=== PATIENT | female | born 1955 | race Caucasian/White ===

== ENCOUNTER → 2024-07-04 12:16 | Outpatient (REF) | payer MEDICARE, OTHER, SELFPAY ==
[2024-07-04 15:41] LABS: ALT (SGPT) 18 U/L (0-35); AST (SGOT) 30 U/L (14-36); Albumin 4.5 g/dl (3.5-5.0); Alkaline Phosphatase 86 U/L (38-126); Blood Urea Nitrogen 22 mg/dl (7-17); Calcium 9.5 mg/dl (8.4-10.2); Carbon Dioxide 29 mmol/L (22-30); Chloride 100 mmol/L (98-107); Glucose 100 mg/dl (70-99); HDL Cholesterol 100 mg/dl; LDL Cholesterol, Calculated 134 mg/dl; Potassium 4.6 mmol/L (3.5-5.1); Sodium 141 mmol/L (135-145); Total Bilirubin 0.8 mg/dl (0.2-1.3); Total Cholesterol 253 mg/dl (50-199); Total Protein 7.4 g/dl (6.3-8.2); Triglyceride 96 mg/dl (10-149); Very Low Density Lipoprotein 19 mg/dl (0-30); eGFR > 60.00
[2024-07-04 15:57] LABS: Vitamin D, 25-OH*** 52.1 ng/mL (30-80)
== END ==
LOC: HWLAB 12:16
PROVIDERS: ATTENDING PHYSICIAN Family Medicine
DX: M85.89 Other specified disorders of bone density and structure, multiple sites (principal); E78.00 Pure hypercholesterolemia, unspecified; M85.80 Other specified disorders of bone density and structure, unspecified site
CPT/HCPCS: 36415; 80053; 80061; 82306

== ENCOUNTER → 2024-07-05 14:09 | Outpatient (REF) | payer MEDICARE, OTHER, SELFPAY | LOC: HWWDC 14:09 | PROVIDERS: ATTENDING PHYSICIAN Obstetrics & Gynecology; FAMILY PHYSICIAN Family Medicine | DX: Z12.31 Encounter for screening mammogram for malignant neoplasm of breast (principal) | CPT/HCPCS: 77063; 77067 ==

== ENCOUNTER → 2024-07-27 11:57 | Outpatient (REF) | payer MEDICARE, OTHER, SELFPAY | LOC: REG 11:57 | PROVIDERS: ATTENDING PHYSICIAN Family Medicine; REFERRING PHYSICIAN Specialist | DX: K52.9 Noninfective gastroenteritis and colitis, unspecified (principal) | CPT/HCPCS: 87045; 87046; 87328; 87329; 87427; 89055 ==

== ENCOUNTER → 2024-08-17 11:33 | Outpatient (REF) | payer MEDICARE, OTHER, SELFPAY ==
[2024-08-17 14:04] LABS: C-Reactive Protein < 5.00 mg/L (0.0-10.00)
[2024-08-17 14:05] LABS: IgA 222 mg/dl (70-400)
[2024-08-17 14:35] LABS: TSH Reflex To Free T4 1.45 uIU/ml (0.47-4.68)
[2024-08-17 14:43] LABS: Erythrocyte Sed Rate 12 mm/hour (0-20)
== END ==
LOC: REG 11:33
PROVIDERS: ATTENDING PHYSICIAN Physician Assistant; FAMILY PHYSICIAN Family Medicine
DX: R19.7 Diarrhea, unspecified (principal)
CPT/HCPCS: 36415; 82784; 83516; 84443; 85652; 86140; 86231

== ENCOUNTER → 2024-08-25 15:43 | Outpatient (REF) | payer MEDICARE, OTHER, SELFPAY | LOC: REG 15:43 | PROVIDERS: ATTENDING PHYSICIAN Physician Assistant; FAMILY PHYSICIAN Family Medicine | DX: R19.7 Diarrhea, unspecified (principal) | CPT/HCPCS: 82653; 82705; 83993 ==

== ENCOUNTER → 2025-02-20 12:43 | Outpatient (REF) | payer MEDICARE, OTHER, SELFPAY ==
[2025-02-20 16:05] LABS: % Basophils 0.8 % (0-2); % Eosinophils 1.9 % (0-6); % Immature Granulocytes 0.2 % (0-0.5); % Lymphocytes 35.6 % (20.5-51.1); % Monocytes 8.3 % (1.7-9.3); % Neutrophils 53.2 % (42.2-75.2); Absolute Eosinophils 0.1 10^3/uL (0-0.7); Absolute Lymphocytes 1.7 10^3/uL (1.2-3.4); Absolute Monocytes 0.4 10^3/uL (0.1-0.6); Absolute Neutrophils 2.6 10^3/uL (1.4-6.5); Hematocrit 39.4 % (37.0-47.0); Hemoglobin 13.3 g/dL (12.0-16.0); Mean Corp Hgb Conc. 33.8 g/dL (33.0-37.0); Mean Corpuscular Volume 91.8 fL (81.0-99.0); Mean Platelet Volume 10.8 fL (7.4-10.4); Nucleated Red Blood Cells % 0 %; Platelet Count 230 10^3/uL (130-400); Red Blood Cell Count 4.29 10^6/uL (4.20-5.40); Red Cell Dist. Width 12.6 % (11.5-14.5); White Blood Cell Count 4.8 10^3/uL (4.8-10.8)
[2025-02-20 16:12] LABS: ALT (SGPT) 19 U/L (0-35); AST (SGOT) 27 U/L (14-36); Albumin 4.1 g/dl (3.5-5.0); Alkaline Phosphatase 74 U/L (38-126); Blood Urea Nitrogen 17 mg/dl (7-17); Calcium 9.3 mg/dl (8.4-10.2); Carbon Dioxide 30 mmol/L (22-30); Chloride 103 mmol/L (98-107); Glucose 91 mg/dl (70-99); HDL Cholesterol 91 mg/dl; LDL Cholesterol, Calculated 152 mg/dl; Potassium 4.3 mmol/L (3.5-5.1); Sodium 138 mmol/L (135-145); Total Bilirubin 0.7 mg/dl (0.2-1.3); Total Cholesterol 260 mg/dl (50-199); Total Protein 6.9 g/dl (6.3-8.2); Triglyceride 88 mg/dl (10-149); Very Low Density Lipoprotein 17 mg/dl (0-30); eGFR > 60.00
[2025-02-20 16:28] LABS: FSH 85.8 mIU/ml; Free T4 0.91 ng/dl (0.78-2.19)
[2025-02-20 16:42] LABS: TSH 1.23 uIU/ml (0.47-4.68)
== END ==
LOC: HWRAD 12:43
PROVIDERS: ATTENDING PHYSICIAN Family Medicine
DX: N95.1 Menopausal and female climacteric states (principal); E78.00 Pure hypercholesterolemia, unspecified; R53.83 Other fatigue; R61 Generalized hyperhidrosis
CPT/HCPCS: 36415; 71046; 80053; 80061; 82681; 83001; 84439; 84443; 85025

== ENCOUNTER 2025-04-03 06:18 | Day surgery (SDC) | payer MEDICARE, OTHER, SELFPAY | END 2025-04-03 14:29 | disposition home or self-care (01) | LOC: GI 06:18 | PROVIDERS: ATTENDING PHYSICIAN Specialist | DX: Z12.11 Encounter for screening for malignant neoplasm of colon (principal); K57.30 Diverticulosis of large intestine without perforation or abscess without bleeding; R13.10 Dysphagia, unspecified; R11.0 Nausea; K44.9 Diaphragmatic hernia without obstruction or gangrene; K22.70 Barrett's esophagus without dysplasia; K31.89 Other diseases of stomach and duodenum; Z80.0 Family history of malignant neoplasm of digestive organs | CPT/HCPCS: 45380; 43239; 88305; 88342 ==

== ENCOUNTER → 2025-05-25 06:49 | Outpatient (REF) | payer MEDICARE, OTHER, SELFPAY | LOC: HWLAB 06:49 | PROVIDERS: ATTENDING PHYSICIAN Urology; FAMILY PHYSICIAN Family Medicine | DX: I10 Essential (primary) hypertension (principal) | CPT/HCPCS: 36415; 83835 ==

== ENCOUNTER → 2025-06-15 11:05 | Outpatient (REF) | payer MEDICARE, OTHER, SELFPAY ==
[2025-06-15 12:02] LABS: Hematocrit 39.6 % (37.0-47.0); Hemoglobin 13.3 g/dL (12.0-16.0); Mean Corp Hgb Conc. 33.6 g/dL (33.0-37.0); Mean Corpuscular Volume 92.1 fL (81.0-99.0); Nucleated Red Blood Cells % 0 %; Platelet Count 212 10^3/uL (130-400); Red Cell Dist. Width 12.9 % (11.5-14.5)
[2025-06-15 12:04] LABS: Urine Character Clear (Clear)
[2025-06-15 13:04] LABS: TSH 2.40 uIU/ml (0.47-4.68)
[2025-06-15 13:06] LABS: ALT (SGPT) 20 U/L (0-35); AST (SGOT) 26 U/L (14-36); Albumin 4.7 g/dl (3.5-5.0); Alkaline Phosphatase 77 U/L (38-126); Blood Urea Nitrogen 21 mg/dl (7-17); Calcium 9.8 mg/dl (8.4-10.2); Carbon Dioxide 27 mmol/L (22-30); Chloride 103 mmol/L (98-107); Glucose 94 mg/dl (70-99); Potassium 4.2 mmol/L (3.5-5.1); Sodium 138 mmol/L (135-145); Total Protein 7.7 g/dl (6.3-8.2); eGFR > 60.00
[2025-06-15 13:33] LABS: C-Reactive Protein < 5.00 mg/L (0.0-10.00)
[2025-06-17 03:14] LABS: IGF-1 Z Score Calculation 0.1
== END ==
LOC: REG 11:05
PROVIDERS: ATTENDING PHYSICIAN Nurse Practitioner Family; FAMILY PHYSICIAN Family Medicine; OTHER PHYSICIAN Obstetrics & Gynecology
DX: R61 Generalized hyperhidrosis (principal)
CPT/HCPCS: 36415; 80053; 81003; 83497; 83525; 83835; 84305; 84439; 84443; 84681; 85025; 86140; 86480; 87040

== ENCOUNTER → 2025-06-20 09:28 | Outpatient (REF) | payer MEDICARE, OTHER, SELFPAY | LOC: HWRAD 09:28 | PROVIDERS: ATTENDING PHYSICIAN Obstetrics & Gynecology; FAMILY PHYSICIAN Family Medicine | DX: R61 Generalized hyperhidrosis (principal) | CPT/HCPCS: 76830; 76856 ==

== ENCOUNTER → 2025-07-09 13:15 | Outpatient (REF) | payer MEDICARE, OTHER, SELFPAY | LOC: WDC 13:15 | PROVIDERS: ATTENDING PHYSICIAN Obstetrics & Gynecology; FAMILY PHYSICIAN Family Medicine | DX: M85.80 Other specified disorders of bone density and structure, unspecified site (principal); Z78.0 Asymptomatic menopausal state; Z12.31 Encounter for screening mammogram for malignant neoplasm of breast | CPT/HCPCS: 77063; 77067; 77080 ==

== ENCOUNTER → 2025-08-30 14:40 | Outpatient (REF) | payer MEDICARE, OTHER, SELFPAY | LOC: MRI 3T 14:40 | PROVIDERS: ATTENDING PHYSICIAN Nurse Practitioner Family; FAMILY PHYSICIAN Family Medicine | DX: R61 Generalized hyperhidrosis (principal) | CPT/HCPCS: 70553; A9575 ==

== ENCOUNTER → 2025-10-13 07:26 | Outpatient (REF) | payer MEDICARE, OTHER, SELFPAY | LOC: PAVMRI 07:26 | PROVIDERS: ATTENDING PHYSICIAN Nurse Practitioner Family; FAMILY PHYSICIAN Family Medicine | DX: R61 Generalized hyperhidrosis (principal) | CPT/HCPCS: 74181 ==